=== PATIENT | female | born 1975 | race African-American/Black ===

== ENCOUNTER 2017-11-24 07:39 | Inpatient (IN) | payer MEDICAID, OTHER ==
[~2017-11-24] VITALS: Ht 157.5 cm; Wt 45.4 kg
[2017-11-24] MEDS ORDERED: SODIUM CHLORIDE 0.9% 1,000 ML IV ONE (08:24)
[2017-11-24] MEDS ORDERED: DONNATAL 5ml ORAL Elix (BELLADONNA ALK-PHENOBARB) PO ONE (08:30)
[2017-11-24] MEDS ORDERED: LIDOCAINE VISCOUS 2% 15ML UD PO ONE (08:30)
[2017-11-24] MEDS ORDERED: ALUM & MAG HYDROX-SIMETH LIQ(MAALOX) 30 ML PO ONE (08:30)
[2017-11-24 09:33] LABS: Hematocrit 34.1 % (36.0-46.0); Hemoglobin 11.4 g/dL (12.2-16.2); Mean Corpuscular Hemoglobin 32.7 pg (28.0-32.0); Mean Corpuscular Hgb Conc. 33.3 g/dL (32.0-36.0); Mean Corpuscular Volume 98.2 fL (80.0-100.0); Platelet Count (auto) 151 10^3/uL (140-450); Red Blood Cells 3.48 10^6/uL (4.0-5.20); Red Cell Distribution Width 16.7 % (11.8-14.3); White Blood Cell 4.4 10^3/uL (4.4-10.8)
[2017-11-24 09:41] LABS: Band Neutrophils % (manual) 0; Basophils % (manual) 0 (0.0-2.0); Blast Cells 0; Eosinophils % (manual) 0 (0-7); Metamyelocytes % 0; Myelocytes % 0; Promyelocytes % 0; Reactive Lymphocytes 0
[2017-11-24 09:59] LABS: Albumin 2.9 g/dL (3.4-5.0); BUN/Creatinine Ratio 10.8; Calcium 7.3 mg/dL (8.5-10.1); Magnesium 1.6 mg/dL (1.6-2.6); Potassium 3.7 mmol/L (3.5-5.1); Salicylate 7.9 mg/dL (2.8-20.0)
[2017-11-24 10:01] LABS: Bilirubin, Total 0.4 mg/dL (0.2-1.0); Total Protein 6.8 g/dL (6.4-8.2)
[2017-11-24 10:18] LABS: Urine Bacteria NONE SEEN /hpf (None Seen); Urine Blood Negative /uL (Negative); Urine Specific Gravity 1.023 (1.001-1.035); Urine WBC 3 /hpf (0 - 5)
[2017-11-24] MEDS ORDERED: D5W 5% IV ONE ×2 (10:30→11:30)
[2017-11-24] MEDS ORDERED: ACETYLCYSTEINE IV ONE ×2 (10:30→11:30)
[2017-11-24 10:33] LABS: Amphetamine Screen, Urine NEGATIVE (NEGATIVE); Barbiturate Scree,Urine NEGATIVE (NEGATIVE); Benzodiazephine Screen, Urine NEGATIVE (NEGATIVE); Cannabinoid Screen, Urine POSITIVE (NEGATIVE); Cocaine Screen, Urine NEGATIVE (NEGATIVE); Opiate Scree,Urine NEGATIVE (NEGATIVE); Phencyclidine Screen, Urine NEGATIVE (NEGATIVE)
[2017-11-24] MEDS ORDERED: NICOTINE 21MG/24 HR TOPICAL PATCH TD SCH (10:37)
[2017-11-24 11:39] LABS: Lymphocytes % (manual) 49 (10.0-50.0); Monocytes % (manual) 15 (0-12)
[2017-11-24] MEDS ORDERED: PROMETHAZINE HCL 25 MG/ML 1ML IV ONE (15:15)
[2017-11-24] MEDS: ACETYLCYSTEINE 200MG/ML IV SOL 4,500 MG in D5W 5% 1,000 ML IV SCH (16:13)
[2017-11-24 22:35] LABS: Acetaminophen < 2.0 ug/mL (10-30); Salicylate 4.6 mg/dL (2.8-20.0)
[2017-11-24 22:38] LABS: Albumin 2.8 g/dL (3.4-5.0); BUN/Creatinine Ratio 11.3; Bilirubin, Total 1.2 mg/dL (0.2-1.0); Calcium 8.1 mg/dL (8.5-10.1); Potassium 3.5 mmol/L (3.5-5.1); Total Protein 6.8 g/dL (6.4-8.2)
[2017-11-24] MEDS ORDERED: chlordiazePOXIDE HCL 25 MG CAP PO PRN (22:45)
[2017-11-24] MEDS ORDERED: ONDANSETRON HCL 4 MG/2 ML VIAL IV PRN (22:45)
[2017-11-25 07:22] LABS: Basophils # (auto) 0 uL; Basophils % (auto) 0.8 % (0.0-2.0); Eosinophils # (auto) 0 uL; Eosinophils % (auto) 1.2 % (0.0-7.0); Hematocrit 35.9 % (36.0-46.0); Hemoglobin 12.2 g/dL (12.2-16.2); Lymphocytes # (auto) 0.9 uL; Lymphocytes % (auto) 24.1 % (10.0-50.0); Mean Corpuscular Hemoglobin 33.2 pg (28.0-32.0); Mean Corpuscular Hgb Conc. 34.1 g/dL (32.0-36.0); Mean Corpuscular Volume 97.3 fL (80.0-100.0); Monocytes # (auto) 0.5 uL; Monocytes % (auto) 12.7 % (0.0-12.0); Neutrophils # (auto) 2.4 uL; Neutrophils % (auto) 61.2 % (37.0-80.0); Nucleated Red Blood Cells % 0.2 %; Platelet Count (auto) 138 10^3/uL (140-450); Red Blood Cells 3.68 10^6/uL (4.0-5.20); Red Cell Distribution Width 16.6 % (11.8-14.3); White Blood Cell 3.9 10^3/uL (4.4-10.8)
[2017-11-25 07:26] LABS: Albumin 2.6 g/dL (3.4-5.0); BUN/Creatinine Ratio 7.7; Calcium 7.9 mg/dL (8.5-10.1); Potassium 3.1 mmol/L (3.5-5.1)
[2017-11-25 07:29] LABS: Bilirubin, Total 1.6 mg/dL (0.2-1.0); Total Protein 6.5 g/dL (6.4-8.2)
[2017-11-25] MEDS: ACETYLCYSTEINE 200MG/ML IV SOL 4,500 MG in D5W 5% 1,000 ML IV SCH (07:30)
[2017-11-25] MEDS: NICOTINE 14 MG/24HR TOPICAL PATCH TD SCH (07:46)
[2017-11-25] MEDS: THIAMINE HCL 100 MG TAB PO SCH (10:26)
[2017-11-25] MEDS: PANTOPRAZOLE 40 MG TAB PO SCH (10:26)
[2017-11-25] MEDS: FOLIC ACID 1 MG TAB PO SCH (10:27)
[2017-11-25 10:53] LABS: Albumin 2.7 g/dL (3.4-5.0); BUN/Creatinine Ratio 1.5; Bilirubin, Total 1.4 mg/dL (0.2-1.0); Calcium 8.4 mg/dL (8.5-10.1); Potassium 3.4 mmol/L (3.5-5.1); Total Protein 6.8 g/dL (6.4-8.2)
[2017-11-25 17:15] VITALS: BP 130/87
[2017-11-25 17:50] VITALS: BP 130/87
[2017-11-25 19:16] LABS: Albumin 2.9 g/dL (3.4-5.0); BUN/Creatinine Ratio 5.4
[2017-11-25 19:19] LABS: Bilirubin, Total 0.7 mg/dL (0.2-1.0)
[2017-11-25 19:29] LABS: Potassium 2.9 mmol/L (3.5-5.1)
[2017-11-25] MEDS ORDERED: POTASSIUM CHL 20 Meq TABLET PO ONE (21:30)
[2017-11-26] MEDS: ACETYLCYSTEINE 200MG/ML IV SOL 4,500 MG in D5W 5% 1,000 ML IV SCH ×2 (00:07→15:30)
[2017-11-26 05:00] VITALS: BP 129/81
[2017-11-26] MEDS: NICOTINE 14 MG/24HR TOPICAL PATCH TD SCH (06:44)
[2017-11-26 07:08] LABS: Basophils # (auto) 0 uL; Basophils % (auto) 0.9 % (0.0-2.0); Eosinophils # (auto) 0.1 uL; Eosinophils % (auto) 1.7 % (0.0-7.0); Hemoglobin 11.4 g/dL (12.2-16.2); Lymphocytes # (auto) 1.5 uL; Lymphocytes % (auto) 34.8 % (10.0-50.0); Mean Corpuscular Hemoglobin 32.9 pg (28.0-32.0); Mean Corpuscular Hgb Conc. 33.5 g/dL (32.0-36.0); Mean Corpuscular Volume 98.1 fL (80.0-100.0); Monocytes # (auto) 0.7 uL; Neutrophils % (auto) 46.6 % (37.0-80.0); Nucleated Red Blood Cells % 0.2 %; Platelet Count (auto) 134 10^3/uL (140-450); Red Blood Cells 3.46 10^6/uL (4.0-5.20); Red Cell Distribution Width 16.7 % (11.8-14.3); White Blood Cell 4.3 10^3/uL (4.4-10.8)
[2017-11-26 07:24] LABS: INR 1.07 (0.9-1.15); Prothrombin Time 11.4 sec (9.27-12.13)
[2017-11-26 07:40] LABS: Albumin 2.5 g/dL (3.4-5.0); BUN/Creatinine Ratio 9.1; Bilirubin, Total 0.9 mg/dL (0.2-1.0); Calcium 7.9 mg/dL (8.5-10.1); Potassium 3.3 mmol/L (3.5-5.1); Total Protein 6.3 g/dL (6.4-8.2)
[2017-11-26] MEDS ORDERED: POTASSIUM CHL 20 Meq TABLET PO ONE (10:30)
[2017-11-26] MEDS: FOLIC ACID 1 MG TAB PO SCH (11:00)
[2017-11-26] MEDS: THIAMINE HCL 100 MG TAB PO SCH (11:00)
[2017-11-26] MEDS: PANTOPRAZOLE 40 MG TAB PO SCH (11:00)
[2017-11-26 14:04] VITALS: BP 139/106
[2017-11-26 14:09] LABS: Basophils # (auto) 0 uL; Basophils % (auto) 0.9 % (0.0-2.0); Eosinophils # (auto) 0.1 uL; Eosinophils % (auto) 1.2 % (0.0-7.0); Hematocrit 35.9 % (36.0-46.0); Lymphocytes # (auto) 1.6 uL; Lymphocytes % (auto) 30.6 % (10.0-50.0); Mean Corpuscular Hgb Conc. 33.4 g/dL (32.0-36.0); Mean Corpuscular Volume 99.1 fL (80.0-100.0); Monocytes # (auto) 0.6 uL; Monocytes % (auto) 11.5 % (0.0-12.0); Neutrophils # (auto) 2.9 uL; Neutrophils % (auto) 55.8 % (37.0-80.0); Nucleated Red Blood Cells % 0.1 %; Platelet Count (auto) 135 10^3/uL (140-450); Red Blood Cells 3.62 10^6/uL (4.0-5.20); Red Cell Distribution Width 16.9 % (11.8-14.3); White Blood Cell 5.1 10^3/uL (4.4-10.8)
[2017-11-26 14:23] LABS: INR 1.04 (0.9-1.15); Prothrombin Time 11.1 sec (9.27-12.13)
[2017-11-26 14:32] LABS: Albumin 2.9 g/dL (3.4-5.0); BUN/Creatinine Ratio 8.6; Bilirubin, Total 0.5 mg/dL (0.2-1.0); Calcium 8.3 mg/dL (8.5-10.1); Potassium 3.5 mmol/L (3.5-5.1); Total Protein 7.2 g/dL (6.4-8.2)
== END 2017-11-26 16:05 | disposition home or self-care (01) | DRG 812 ==
LOC: ER 07:43 → TELE 07:44 → TELE-CENTR 11-25 17:20
PROVIDERS: ADMIT Nurse Practitioner Family; ATTEND Internal Medicine
DX: T39.1X1A Poisoning by 4-Aminophenol derivatives, accidental (unintentional), initial encounter (principal); R45.851 Suicidal ideations; E44.0 Moderate protein-calorie malnutrition; E83.51 Hypocalcemia; K70.9 Alcoholic liver disease, unspecified; D64.9 Anemia, unspecified; F32.9 Major depressive disorder, single episode, unspecified; E87.6 Hypokalemia; F10.20 Alcohol dependence, uncomplicated; F12.90 Cannabis use, unspecified, uncomplicated; F17.210 Nicotine dependence, cigarettes, uncomplicated; Z88.5 Allergy status to narcotic agent; Z68.1 Body mass index [BMI] 19.9 or less, adult; Y92.89 Other specified places as the place of occurrence of the external cause
CPT/HCPCS: 36415; 80053; 80307; 80320; 80329; 81001; 81025; 83735; 85007; 85025; 85027; 85610; 93005; 94761; 96360; J7060

== ENCOUNTER 2018-12-01 10:29 | Inpatient (IN) | payer MEDICAID, OTHER ==
[~2018-12-01] VITALS: Ht 149.9 cm; Wt 37.9 kg
[2018-12-01 11:59] LABS: Basophils # (auto) 0 uL; Eosinophils # (auto) 0 uL; Eosinophils % (auto) 0.6 % (0.0-7.0); Hemoglobin 13.3 g/dL (12.2-16.2); Lymphocytes # (auto) 2.3 uL; Monocytes # (auto) 1.1 uL
[2018-12-01 12:01] LABS: Basophils % (auto) 0.5 % (0.0-2.0); Hematocrit 38.6 % (36.0-46.0); Lymphocytes % (auto) 29.7 % (10.0-50.0); Mean Corpuscular Hemoglobin 34.9 pg (28.0-32.0); Mean Corpuscular Hgb Conc. 34.4 g/dL (32.0-36.0); Mean Corpuscular Volume 101.4 fL (80.0-100.0); Neutrophils # (auto) 4.1 uL; Neutrophils % (auto) 54.2 % (37.0-80.0); Nucleated Red Blood Cells % 0.1 %; Platelet Count (auto) 88 10^3/uL (140-450); Red Blood Cells 3.81 10^6/uL (4.0-5.20); Red Cell Distribution Width 14.1 % (11.8-14.3); White Blood Cell 7.6 10^3/uL (4.4-10.8)
[2018-12-01 12:03] LABS: Urine Blood Negative /uL (Negative); Urine Mucus FEW (None Seen); Urine Pregnacy Test Negative (Negative); Urine Specific Gravity 1.019 (1.001-1.035); Urine Sperm PRESENT /hpf (None Seen); Urine WBC 17 /hpf (0 - 5)
[2018-12-01 12:05] LABS: Urine Bacteria FEW /hpf (None Seen)
[2018-12-01 12:12] LABS: Albumin 3.1 g/dL (3.4-5.0); Calcium 8.2 mg/dL (8.5-10.1); Potassium 3.5 mmol/L (3.5-5.1)
[2018-12-01 12:15] LABS: BUN/Creatinine Ratio 6.7; Bilirubin, Total 2.3 mg/dL (0.2-1.0); Total Protein 8.2 g/dL (6.4-8.2)
[2018-12-01 12:37] LABS: Amphetamine Screen, Urine NEGATIVE (NEGATIVE); Barbiturate Scree,Urine NEGATIVE (NEGATIVE); Benzodiazephine Screen, Urine NEGATIVE (NEGATIVE); Cannabinoid Screen, Urine POSITIVE (NEGATIVE); Cocaine Screen, Urine NEGATIVE (NEGATIVE); Opiate Scree,Urine NEGATIVE (NEGATIVE); Phencyclidine Screen, Urine NEGATIVE (NEGATIVE)
[2018-12-01] MEDS ORDERED: PANTOPRAZOLE 40 MG/10 ML VIAL INJ IV ONE (13:30)
[2018-12-01] MEDS ORDERED: cefTRIAXone 1GM/50ML D5W 50 ML IV ONE (14:15)
[2018-12-01] MEDS ORDERED: THIAMINE 100mg/ml INJ (200mg/2ml VIAL) IV ONE (14:30)
[2018-12-01] MEDS ORDERED: FAMOTIDINE (10MG/ML) 2ML VL IV ONE (15:00)
[2018-12-01] MEDS ORDERED: NITROGLYCERIN 0.4 MG SL TAB SL PRN (15:00)
[2018-12-01] MEDS ORDERED: ONDANSETRON HCL 4 MG/2 ML VIAL IV PRN (15:00)
[2018-12-01] MEDS ORDERED: MORPHINE SULF INJ 2 MG/ML SYRINGE 1ML IV PRN ×2 (15:00)
[2018-12-01] MEDS: LORazepam 2MG/ML-1ML VIAL IV PRN (16:45)
[2018-12-01] MEDS: FOLIC ACID 1 MG, MULTIPLE VITAMIN 10 ML, MAGNESIUM SULF SDV 50% 8 MEQ, THIAMINE INJ 100... INJ SCH ×5 (17:15)
--- NOTE | 2018-12-01 20:25 | NUR ---
TELE ADMIT FROM ER RECEIVED PATIENT VIA GURNEY FROM ER. PATIENT A/O X4, GENERALIZED WEAKNESS, AMBULATORY WITH MODERATE ASSISTANCE. AT BEDSIDE. UPDATED AND PATIENT ON POC, VERBALIZED UNDERSTANDING. BED LOCKED IN LOW POSITION, CALL LIGHT WITHIN REACH, WILL CONTINUE TO MONITOR PATIENT Q1HR AND PRN.
--- NOTE | 2018-12-01 20:45 | NUR ---
TAMMY MCCRAY states they want to leave the floor Against Medical Advice (AMA) to go outside and smoke. Patient encouraged to stay on floor and not smoke. Patient advised of the risks of leaving AMA, patient verbalized understanding and signed required AMA form. Patient accompanied by .
[2018-12-01] MEDS: PROPRANOLOL HCL 20 MG TAB PO SCH (21:58)
[2018-12-01 22:25] VITALS: BP 108/70
[2018-12-02 06:11] LABS: Eosinophils # (auto) 0.1 uL; Hemoglobin 11.9 g/dL (12.2-16.2); Monocytes # (auto) 0.6 uL; White Blood Cell 5.6 10^3/uL (4.4-10.8)
[2018-12-02 06:14] LABS: Basophils # (auto) 0.2 uL; Basophils % (auto) 2.9 % (0.0-2.0); Eosinophils % (auto) 1.2 % (0.0-7.0); Hematocrit 34.8 % (36.0-46.0); Lymphocytes # (auto) 1.8 uL; Lymphocytes % (auto) 31.8 % (10.0-50.0); Mean Corpuscular Hemoglobin 34.7 pg (28.0-32.0); Mean Corpuscular Hgb Conc. 34.2 g/dL (32.0-36.0); Mean Corpuscular Volume 101.4 fL (80.0-100.0); Monocytes % (auto) 10.7 % (0.0-12.0); Neutrophils % (auto) 53.4 % (37.0-80.0); Nucleated Red Blood Cells % 0.4 %; Platelet Count (auto) 74 10^3/uL (140-450); Red Blood Cells 3.43 10^6/uL (4.0-5.20); Red Cell Distribution Width 14.1 % (11.8-14.3)
[2018-12-02 06:38] LABS: INR 1.2 (0.9-1.15); Partial Thromboplastin Time 29.4 sec (23.64-32.05)
[2018-12-02 06:46] LABS: Albumin 2.3 g/dL (3.4-5.0); BUN/Creatinine Ratio 4.4; Calcium 7.2 mg/dL (8.5-10.1); Potassium 3.2 mmol/L (3.5-5.1)
[2018-12-02 06:49] LABS: Bilirubin, Total 1.9 mg/dL (0.2-1.0); Total Protein 6.2 g/dL (6.4-8.2)
--- NOTE | 2018-12-02 07:40 | NUR ---
OPENING SHIFT NOTE PATIENT LAYING IN BED EYES CLOSED CHEST RISE AND FALL VISUALIZED SHOWING NO S/S OF DISTRESS OR SOB. BED IN LOWEST LOCKED POSITION CALL LIGHT WITHIN REACH. BOARD UPDATED . WILL CONTINUE TO MONITOR
[2018-12-02 08:00] VITALS: BP 113/74
[2018-12-02 09:09] VITALS: BP 113/74
[2018-12-02] MEDS: LORazepam 2MG/ML-1ML VIAL IV PRN (09:16)
[2018-12-02] MEDS: PANTOPRAZOLE 40 MG TAB PO SCH (09:20)
[2018-12-02] MEDS: DULoxetine HCL 30 MG CAP PO SCH (09:20)
[2018-12-02] MEDS: PROPRANOLOL HCL 20 MG TAB PO SCH ×2 (09:20→22:45)
[2018-12-02] MEDS: cefTRIAXone 1GM/50ML D5W 50 ML IV SCH (09:21)
--- NOTE | 2018-12-02 10:43 | NUR ---
CALLED IN TELEPSYCH CONSULT. SPOKE TO NERI. AWAITING CALL BACK.
--- NOTE | 2018-12-02 11:38 | NUR ---
STOOL OCCULT COLLECTED AND SENT TO LAB
[2018-12-02] MEDS ORDERED: POTASSIUM CHL 20 Meq TABLET PO STA (12:03)
[2018-12-02 13:00] VITALS: BP 144/89
[2018-12-02] MEDS ORDERED: POTASSIUM CHL 20 Meq TABLET PO ONE (14:30)
[2018-12-02] MEDS: FOLIC ACID 1 MG, MULTIPLE VITAMIN 10 ML, MAGNESIUM SULF SDV 50% 8 MEQ, THIAMINE INJ 100... INJ SCH ×5 (15:55)
[2018-12-02 17:00] VITALS: BP 113/73
--- NOTE | 2018-12-02 18:52 | NUR ---
END OF SHIFT NOTE PATIENT ALERT AND ORIENTED X4 DENIES PAIN, SOB OR ANY DISTRESS. BED IN LOWEST LOCKED POSITION CALL LIGHT WITHIN REACH. ENDORSE CARE TO NOC RN
--- NOTE | 2018-12-02 19:40 | NUR ---
OPENING SHIFT NOTE RECEIVED REPORT FROM DAYSHIFT RN. PATIENT LYING IN BED WITH EYES CLOSED AND AT BEDSIDE. NO S/S OF DISTRESS OR SOB. NO PAIN NOTED OR REPORTED AT THIS TIME. PATIENT A/O X4, AMBULATORY WITH MINIMAL ASSIST. UPDATED PATIENT ON POC, VERBALIZED UNDERSTANDING. BED LOCKED IN LOW POSITION, CALL LIGHT WITHIN REACH. WILL CONTINUE TO MONITOR PATIENT Q1HR AND PRN.
[2018-12-02 22:11] VITALS: BP 120/70
[2018-12-03 05:42] VITALS: BP 114/73
[2018-12-03 06:22] LABS: Basophils # (auto) 0.1 uL; Basophils % (auto) 1.4 % (0.0-2.0); Eosinophils # (auto) 0.1 uL; Hemoglobin 12.9 g/dL (12.2-16.2); Monocytes # (auto) 0.7 uL; Neutrophils # (auto) 2.8 uL
[2018-12-03 06:26] LABS: Eosinophils % (auto) 1.9 % (0.0-7.0); Lymphocytes # (auto) 1.9 uL; Lymphocytes % (auto) 33.7 % (10.0-50.0); Mean Corpuscular Hemoglobin 34.5 pg (28.0-32.0); Mean Corpuscular Hgb Conc. 33.9 g/dL (32.0-36.0); Monocytes % (auto) 13.4 % (0.0-12.0); Neutrophils % (auto) 49.6 % (37.0-80.0); Nucleated Red Blood Cells % 0.7 %; Platelet Count (auto) 78 10^3/uL (140-450); Red Blood Cells 3.73 10^6/uL (4.0-5.20); Red Cell Distribution Width 13.6 % (11.8-14.3); White Blood Cell 5.6 10^3/uL (4.4-10.8)
[2018-12-03 06:58] LABS: Albumin 2.3 g/dL (3.4-5.0); Calcium 7.1 mg/dL (8.5-10.1); Potassium 3.7 mmol/L (3.5-5.1)
[2018-12-03 07:01] LABS: BUN/Creatinine Ratio 6.7; Bilirubin, Total 2.1 mg/dL (0.2-1.0); Total Protein 6.5 g/dL (6.4-8.2)
--- NOTE | 2018-12-03 07:24 | NUR ---
Opening Shift Note Assumed care of patient, awake and alert. No S/S of distress/SOB or pain. Instructed on POC and to call for assist PRN, will continue to monitor for changes Q1hr and PRN.
--- NOTE | 2018-12-03 08:07 | NUR ---
Dr. hector mcknight. Addendum: 12/03/18 at 0900 by MOISES MATTHEW RN Dr. Jennifer mcknight
[2018-12-03] MEDS ORDERED: GADOPENTETATE DIMEGLUMINE (10MMOL/20 ML) VIAL IV ONE ×2 (08:22→08:24)
[2018-12-03 09:00] VITALS: BP 113/73
[2018-12-03] MEDS: cefTRIAXone 1GM/50ML D5W 50 ML IV SCH (09:41)
[2018-12-03] MEDS: PROPRANOLOL HCL 20 MG TAB PO SCH ×2 (10:00→21:33)
[2018-12-03] MEDS: DULoxetine HCL 30 MG CAP PO SCH (10:00)
[2018-12-03] MEDS: PANTOPRAZOLE 40 MG TAB PO SCH (10:00)
--- NOTE | 2018-12-03 10:59 | NUR ---
Spoke with Radha Martinez BI SPECIALIST. BI SPECIALIST recommends to have patient complete echocardiogram before procedure. Spoke to preop AUGUSTA Smith. RN aware. Spoke with echocardiogram community development technician and patient will receive echocardiogram as soon as possible.
--- NOTE | 2018-12-03 11:34 | NUR ---
Received call from [facility]. Patient had 7 beats of ventricular tachycardia. Patient complains of sharp chest pain that "hurts more when you touch it." Spoke with Radha Martinez PLAYER DEVELOPMENT EXECUTIVE. EKG obtained and shown to Michelle WELCH. Per PLAYER DEVELOPMENT EXECUTIVE, patient should receive stress test before cleared for EGD. Potassium replacement and STAT magnesium ordered. Received orders to call PLAYER DEVELOPMENT EXECUTIVE if Magnesium is < 2. Spoke to preop AUGUSTA Chow. Preop aware. Dr. Rodriguez paged.
[2018-12-03] MEDS ORDERED: POTASSIUM CHL 20 Meq TABLET PO ONE ×2 (12:00→12:30)
[2018-12-03] MEDS ORDERED: MAGNESIUM OXIDE 400 MG TAB PO ONE (12:30)
[2018-12-03 12:34] VITALS: BP 112/61
[2018-12-03] MEDS: chlordiazePOXIDE HCL 25 MG CAP PO PRN ×2 (13:14→22:47)
[2018-12-03] MEDS: FOLIC ACID 1 MG, MULTIPLE VITAMIN 10 ML, MAGNESIUM SULF SDV 50% 8 MEQ, THIAMINE INJ 100... INJ SCH ×5 (15:46)
--- NOTE | 2018-12-03 16:18 | NUR ---
I spoke with Dr. Sam earlier today to let her know that we are not a [employer] contracted facility and that if patient is going to stay more than a day or two she needs to be transferred to [facility] (a [employer] contracted facility).
[2018-12-03 17:00] VITALS: BP 108/74
--- NOTE | 2018-12-03 19:10 | NUR ---
Dr. De La Torre returned paged. No additional Magnesium replacement necessary.
--- NOTE | 2018-12-03 19:19 | NUR ---
Change of shift given to security shift supervisor RN. No distress noted.
[2018-12-03 21:53] VITALS: BP 113/69
[2018-12-04 05:34] VITALS: BP 89/60
[2018-12-04 06:24] LABS: Potassium 3.8 mmol/L (3.5-5.1)
[2018-12-04 06:28] LABS: BUN/Creatinine Ratio 11.1; Calcium 7.2 mg/dL (8.5-10.1)
--- NOTE | 2018-12-04 08:00 | NUR ---
Opening Shift Note: Assumed care of patient, awake and alert. Laying in bed. No S/S of distress/SOB or pain. Bed in lowest locked position, side rails up x 2, call light within reach. Instructed on POC and to call for assist PRN, will continue to monitor for changes Q1hr and PRN.
--- NOTE | 2018-12-04 08:02 | NUR ---
Dr. Flaco mcknight. Awaiting call back.
--- NOTE | 2018-12-04 08:59 | NUR ---
Dr. Sam pagejanie.
[2018-12-04 09:00] VITALS: BP 103/56
[2018-12-04] MEDS ORDERED: ADENOSINE 32 MG in GIVE UN-DILUTED 0 ML IV ONE (09:00)
--- NOTE | 2018-12-04 09:03 | NUR ---
SPOKE WITH DOCTOR TONI. MD AWARE PT HAS A BP OF 89/59. PT IS ASYMPTOMATIC, AND DENIES S/S OF DISTRESS, CP, SOB. ORDERED 500 ML BOLUS
[2018-12-04] MEDS ORDERED: SODIUM CHLORIDE 0.9% 500 ML IV ONE (09:15)
[2018-12-04] MEDS: PROPRANOLOL HCL 20 MG TAB PO SCH (10:00)
[2018-12-04] MEDS: DULoxetine HCL 30 MG CAP PO SCH (10:46)
[2018-12-04] MEDS: PANTOPRAZOLE 40 MG TAB PO SCH (10:46)
[2018-12-04] MEDS: cefTRIAXone 1GM/50ML D5W 50 ML IV SCH (10:46)
[2018-12-04] MEDS ORDERED: POTASSIUM CHL 20 Meq TABLET PO ONE (11:15)
[2018-12-04 13:00] VITALS: BP 94/46
[2018-12-04] MEDS: FOLIC ACID 1 MG, MULTIPLE VITAMIN 10 ML, MAGNESIUM SULF SDV 50% 8 MEQ, THIAMINE INJ 100... INJ SCH ×5 (14:02)
--- NOTE | 2018-12-04 15:00 | NUR ---
Nutrition Assessment Notes please see attached link for complete assessment Est. Needs IBW [id number] kcal (25-30 kcal/kgBW), 44-52 gms pro (1.0-1.2 gms/kgBW). Will continue to monitor pertinent labs and reassess nutrient need prn Addendum: 12/04/18 at [address] Amended: Links added.
[2018-12-04 17:00] VITALS: BP 94/47
[2018-12-04 18:50] VITALS: BP 142/52
--- NOTE | 2018-12-04 19:25 | NUR ---
HOSPITALIST PAGED: PAGED HOSPITALIST REGARDING PATIENT WANTING TO LEAVE AMA. WAS NOTIFIED BY DIE REPAIRER FORGING THAT THE PATIENT STATED THAT THEY WANT TO LEAVE AMA AND THAT THEY ARE READY TO GO AND WANT THE PAPER TO SIGN RIGHT NOW. PAGED HOSPITALIST TO NOTIFY THEM THAT THE PATIENT NO LONGER WANTS TO STAY IN THE HOSPITAL. TO SEE PATIENT.
--- NOTE | 2018-12-04 19:26 | NUR ---
HOSPITALIST CALLED BACK REGARDING PATIENT WANTING TO LEAVE: HOSPITALIST MIRACLE CALLED BACK AND UPDATED ABOUT PATIENT AND PATIENTS WANT TO LEAVE AND SIGN AMA. HOSPITALIST STATE THAT THEY WILL COME UP SOON THEY CAN TO TALK TO THE PATIENT.
--- NOTE | 2018-12-04 19:27 | NUR ---
Change of shift given to lieutenant shift supervisor RN. No distress noted.
--- NOTE | 2018-12-04 19:30 | NUR ---
AMA Note TAMMY MCCRAY states they want to leave the hospital Against Medical Advice (AMA). Patient encouraged to stay for further treatment/stabilization. Hospitalist Dasha notified of patient's wishes. Patient advised of the risks and benefits of leaving AMA. Patient verbalized understanding. Patient encouraged to return to the ER if symptoms do not improve or worsen. Removed patients IV from right forearm 20 Gauge, placed gauze and secured with coband. Patient tolerated well. Removed tele box 31 and leads and sent back to surveillance system monitor technicians.
[2018-12-05 10:01] LABS: Hepatitis B Surface Antibody Negative
[2018-12-05 11:40] LABS: Hepatitis A Ab IgM Negative
[2018-12-05 11:41] LABS: Hepatitis B Core IgM Negative; Hepatitis B Core Total AB Negative; Hepatitis B Surface Antigen Negative (Negative)
== END 2018-12-04 19:38 | disposition left against medical advice (07) | DRG 378 ==
LOC: ER 10:29 → TELE 10:30 → TELE-WESTW 20:21
PROVIDERS: ADMIT Nurse Practitioner Acute Care; ATTEND Internal Medicine Nephrology
DX: K92.0 Hematemesis (principal); N39.0 Urinary tract infection, site not specified; E44.0 Moderate protein-calorie malnutrition; Z68.1 Body mass index [BMI] 19.9 or less, adult; I47.2 Ventricular tachycardia; K76.6 Portal hypertension; K86.1 Other chronic pancreatitis; R45.851 Suicidal ideations; D69.6 Thrombocytopenia, unspecified; D70.9 Neutropenia, unspecified; Z88.6 Allergy status to analgesic agent; E86.0 Dehydration; E87.6 Hypokalemia; F12.90 Cannabis use, unspecified, uncomplicated; F17.210 Nicotine dependence, cigarettes, uncomplicated; F32.9 Major depressive disorder, single episode, unspecified; I34.0 Nonrheumatic mitral (valve) insufficiency; K70.30 Alcoholic cirrhosis of liver without ascites; K83.8 Other specified diseases of biliary tract; R62.7 Adult failure to thrive; Z86.73 Personal history of transient ischemic attack (TIA), and cerebral infarction without residual deficits; I95.9 Hypotension, unspecified; K76.89 Other specified diseases of liver; Z53.21 Procedure and treatment not carried out due to patient leaving prior to being seen by health care provider
CPT/HCPCS: 36415; 70450; 71045; 74176; 74181; 76700; 78452; 80048; 80053; 80307; 81001; 81025; 82105; 82270; 83690; 83735; 83880; 84484; 84702; 85025; 85610; 85730; 86703; 86704; 86705; 86706; 86709; 86803; 86850; 86900; 86901; 87040; 87086; 87340; 93005; 93017; 93306; G0378; J0153; J0696; J2405; J3490

== ENCOUNTER 2019-07-15 21:00 | Inpatient (IN) | payer OTHER ==
[~2019-07-15] VITALS: Ht 160 cm; Wt 45.5 kg
[2019-07-16] VITALS (22 sets, daily range): BP systolic 83–100; BP diastolic 33–61
[2019-07-16] MEDS ORDERED: SODIUM CHLORIDE 0.9% 1,000 ML IV ONE ×2 (00:33→11:00)
[2019-07-16 01:19] LABS: Basophils # (auto) 0.1 10 ^3/uL (0-0.2); Basophils % (auto) 1.1 % (0.0-2.0); Eosinophils # (auto) 0 10 ^3/uL (0-0.8); Eosinophils % (auto) 0.1 % (0.0-7.0); Hematocrit 29.8 % (36.0-46.0); Lymphocytes # (auto) 1.7 10 ^3/uL (0.4-5.4); Lymphocytes % (auto) 12.9 % (10.0-50.0); Mean Corpuscular Hemoglobin 34.4 pg (28.0-32.0); Mean Corpuscular Hgb Conc. 33.5 g/dL (32.0-36.0); Mean Corpuscular Volume 102.7 fL (80.0-100.0); Monocytes # (auto) 1.1 10 ^3/uL (0-1.3); Monocytes % (auto) 8.7 % (0.0-12.0); Neutrophils # (auto) 10.2 10 ^3/uL (1.6-8.6); Neutrophils % (auto) 77.2 % (37.0-80.0); Nucleated Red Blood Cells % 0.2 %; Platelet Count (auto) 96 10^3/uL (140-450); Red Blood Cells 2.91 10^6/uL (4.0-5.20); Red Cell Distribution Width 15.5 % (11.8-14.3); White Blood Cell 13.2 10^3/uL (4.4-10.8)
[2019-07-16 01:27] LABS: INR 1.63 (0.9-1.15); Partial Thromboplastin Time 30.2 sec (23.64-32.05)
[2019-07-16 01:31] LABS: Alanine Aminotransferase 47 U/L (13-56); Albumin 2.2 g/dL (3.4-5.0); Amylase 130 U/L (25-115); Anion Gap 5 (5-15); Aspartate Aminotransferase 95 U/L (15-37); BUN/Creatinine Ratio 28.8; Blood Alcohol < 3.0 mg/dL (0-5); Blood Urea Nitrogen 17 mg/dL (7-18); Calcium 8.1 mg/dL (8.5-10.1); Carbon Dioxide 26 mmol/L (21-32); Chloride 108 mmol/L (98-107); GFR African American 141 mL/min; GFR Non-African American 117 mL/min; Glucose 120 mg/dL (74-106); Lipase 196 U/L (73-393); Potassium 3.6 mmol/L (3.5-5.1); Sodium 139 mmol/L (136-145)
[2019-07-16 01:36] LABS: Alkaline Phosphatase 144 U/L (45-117); Total Protein 7.2 g/dL (6.4-8.2)
[2019-07-16] MEDS ORDERED: THIAMINE INJ 100 MG in SODIUM CHLORIDE 0.9% 1,000 ML IV ONE (04:30)
[2019-07-16] MEDS ORDERED: IOHEXOL 300 MG/ML 100ML BOTTLE IJ ONE (04:41)
[2019-07-16] MEDS ORDERED: ONDANSETRON HCL 4 MG/2 ML VIAL IV ONE (04:45)
[2019-07-16] MEDS ORDERED: MORPHINE SULFATE 4 MG/ML SYR/VIAL IV ONE (04:45)
[2019-07-16] MEDS ORDERED: THIAMINE 100mg/ml INJ (200mg/2ml VIAL) ONE (05:21)
[2019-07-16] MEDS ORDERED: PROMETHAZINE HCL 25 MG/ML 1ML IV ONE ×2 (06:15→06:30)
[2019-07-16] MEDS ORDERED: LACTULOSE 20Gm/30ML SOLN PO ONE (06:15)
[2019-07-16 07:42] LABS: Lactic Acid w/Reflex 2.4 mmol/L (0.4-2.0)
[2019-07-16] MEDS ORDERED: TEMAZEPAM 15 MG CAP PO PRN (07:45)
[2019-07-16] MEDS ORDERED: chlordiazePOXIDE HCL 25 MG CAP PO PRN (07:45)
[2019-07-16] MEDS ORDERED: ONDANSETRON HCL 4 MG/2 ML VIAL IV PRN (07:45)
[2019-07-16] MEDS ORDERED: cefTRIAXone 1GM/50ML D5W 50 ML IV SCH (09:00)
[2019-07-16] MEDS ORDERED: PANTOPRAZOLE 40 MG/10 ML VIAL INJ IV SCH (10:00)
[2019-07-16] MEDS: LACTULOSE 20Gm/30ML SOLN PO SCH (11:05)
[2019-07-16] MEDS: FOLIC ACID 1 MG TAB PO SCH (11:05)
[2019-07-16] MEDS: THIAMINE HCL 100 MG TAB PO SCH (11:06)
[2019-07-16 11:35] LABS: Eosinophils # (auto) 0.1 10 ^3/uL (0-0.8); Hemoglobin 7.1 g/dL (12.2-16.2); Nucleated Red Blood Cells % 0.1 %
[2019-07-16 11:36] LABS: Basophils # (auto) 0.1 10 ^3/uL (0-0.2); Eosinophils % (auto) 0.7 % (0.0-7.0); Hematocrit 21.5 % (36.0-46.0); Lymphocytes # (auto) 3.4 10 ^3/uL (0.4-5.4); Lymphocytes % (auto) 28.4 % (10.0-50.0); Mean Corpuscular Hemoglobin 34.6 pg (28.0-32.0); Mean Corpuscular Volume 104.7 fL (80.0-100.0); Monocytes # (auto) 1.2 10 ^3/uL (0-1.3); Monocytes % (auto) 9.8 % (0.0-12.0); Neutrophils # (auto) 7.3 10 ^3/uL (1.6-8.6); Neutrophils % (auto) 60.1 % (37.0-80.0); Platelet Count (auto) 74 10^3/uL (140-450); Red Blood Cells 2.05 10^6/uL (4.0-5.20); Red Cell Distribution Width 15.9 % (11.8-14.3); White Blood Cell 12.1 10^3/uL (4.4-10.8)
[2019-07-16] MEDS ORDERED: VANCOMYCIN PER PHARMACY 0 MG IV SCH (11:45)
[2019-07-16 11:57] LABS: Albumin 1.8 g/dL (3.4-5.0); Calcium 6.5 mg/dL (8.5-10.1); Potassium 3.6 mmol/L (3.5-5.1)
[2019-07-16 12:01] LABS: BUN/Creatinine Ratio 26.7; Bilirubin, Total 1.2 mg/dL (0.2-1.0); Total Protein 5.6 g/dL (6.4-8.2)
[2019-07-16] MEDS: PIPERACILLIN-TAZOB 3.375GM 100 ML IV SCH ×2 (13:09→18:37)
[2019-07-16] MEDS: PANTOPRAZOLE 40 MG/10 ML VIAL INJ IV SCH ×2 (13:10→22:27)
[2019-07-16 13:40] LABS: Urine Bacteria FEW /hpf (None Seen); Urine Blood 1+ /uL (Negative); Urine WBC 1 /hpf (0 - 5)
[2019-07-16 13:47] LABS: Alcohol, Urine < 3.0 mg/dL (0-5); Amphetamine Screen, Urine NEGATIVE (NEGATIVE); Barbiturate Scree,Urine NEGATIVE (NEGATIVE); Benzodiazephine Screen, Urine NEGATIVE (NEGATIVE); Cannabinoid Screen, Urine POSITIVE (NEGATIVE); Cocaine Screen, Urine NEGATIVE (NEGATIVE); Opiate Scree,Urine POSITIVE (NEGATIVE); Phencyclidine Screen, Urine NEGATIVE (NEGATIVE)
[2019-07-16] MEDS ORDERED: metroNIDAZOLE 500MG/100ML 100 ML IV SCH (14:00)
[2019-07-16] MEDS: NOREPINEPHRINE 8 MG/250ML KIT 250 ML IV SCH (15:33)
[2019-07-16] MEDS ORDERED: VANCOMYCIN 500 MG in D5W 5% 100 ML IV ONE (16:00)
--- NOTE | 2019-07-16 18:01 | NUR ---
Got a report from ER.
--- NOTE | 2019-07-16 18:30 | NUR ---
Admit to [facility] from ER Ariana MCCRAYVETTE admitted to [facility] via gurney on casino beverage server, and portable 02. Patient transferred to bed, connected to unit monitoring and oxygen, and weighed by bedscale. Patient oriented to ARCHIE TUBBS, RN primary RN, unit, room, bed, and unit policies regarding patient care and visiting hours. All questions and concerns addressed, patient verbalized understanding. Skin assessment done, patient has IV 20 G at right forearm running Levophed at 2 mcg/min, SBP 85-95 mmHg, MAP 70 mmHg, EKG showing SR HR 80-90 /min, Room air O2 saturation 99-100%, BT 99.3 F. Plan of care discussed with patient, called and transferred her into her room.
--- NOTE | 2019-07-16 18:50 | NUR ---
IV insertion IV access obtained, via clean sterile technique by inserting 22 gauge catheter at left forearm after 1 attempt. IV secured properly. No trauma to site. Patient tolerated procedure well.
--- NOTE | 2019-07-16 19:00 | NUR ---
Dinner tray provided.
--- NOTE | 2019-07-16 20:00 | NUR ---
Opening Shift Note Assumed care of patient, awake and alert, sitting in bed after having dinner. Breathing even and nonlabored, on RA, No S/S of distress/SOB or pain. 20G IV at right FA infusing Levophed and Zosyn. 22G saline lock at left FA, flushed well, CDI site. Due to void. Bed in low position, call light within reach, all alarms are audible, fall and safety precaution in place. Instructed on POC and to call for assist PRN, will continue to monitor for changes Q1hr and PRN.
--- NOTE | 2019-07-16 22:46 | NUR ---
Blood transfusion started EKG and HR stable. Labile SBP, blood transfusion started, will continue to monitor and taper Levophed if needed.
[2019-07-17] VITALS (77 sets, daily range): BP systolic 74–124; BP diastolic 42–78
[2019-07-17] MEDS: PIPERACILLIN-TAZOB 3.375GM 100 ML IV SCH ×4 (00:15→17:53)
--- NOTE | 2019-07-17 01:30 | NUR ---
Blood transfusion done. VSS. Pt able to sleep on and off. No s/s of blood reaction. Continue care.
[2019-07-17] MEDS ORDERED: VANCOMYCIN 500 MG in D5W 5% 100 ML IV SCH ×2 (05:00→09:00)
--- NOTE | 2019-07-17 05:00 | NUR ---
Patient bathe/linen change/ elimination Pt asked for a bedpan for urination. Pt voided clear light sandy urine. Patient given partial bath and yue care. Skin integrity assessed for any changes, no new changes. Linens changed. Patient repositioned for comfort. Pt tolerated well. Pt able to turn and slide up in the bed by self. Continue care.
[2019-07-17 05:14] LABS: Basophils # (auto) 0.1 10 ^3/uL (0-0.2); Eosinophils # (auto) 0.2 10 ^3/uL (0-0.8); Mean Corpuscular Volume 98.4 fL (80.0-100.0); Monocytes # (auto) 0.6 10 ^3/uL (0-1.3); Neutrophils # (auto) 5.6 10 ^3/uL (1.6-8.6)
--- NOTE | 2019-07-17 05:15 | NUR ---
No Vancomycin found in the unit refrigerator. ER called, no vancomycin found. Will call pharmacy when open in am. 06.40am Called Pharmacy for Vancomycin and possible change of administration time. Will endorse to day nurse.
[2019-07-17 05:16] LABS: Basophils % (auto) 0.8 % (0.0-2.0); Eosinophils % (auto) 1.8 % (0.0-7.0); Hemoglobin 8.2 g/dL (12.2-16.2); Lymphocytes # (auto) 2.4 10 ^3/uL (0.4-5.4); Lymphocytes % (auto) 27.1 % (10.0-50.0); Mean Corpuscular Hemoglobin 33.4 pg (28.0-32.0); Monocytes % (auto) 7.1 % (0.0-12.0); Neutrophils % (auto) 63.2 % (37.0-80.0); Platelet Count (auto) 65 10^3/uL (140-450); Red Blood Cells 2.44 10^6/uL (4.0-5.20); Red Cell Distribution Width 18.4 % (11.8-14.3); White Blood Cell 8.9 10^3/uL (4.4-10.8)
--- NOTE | 2019-07-17 05:30 | NUR ---
Med Reconciliation Pt stated that she has no home medication because she has no insurance. Pt stated that her last seizure activity was about 6 months ago. Pt reported that she has never been on seizure medicine. Pt reported that her mother had seizure since she was 8 years old.
[2019-07-17 05:34] LABS: Albumin 1.6 g/dL (3.4-5.0); BUN/Creatinine Ratio 15.1; Calcium 6.5 mg/dL (8.5-10.1); Potassium 3.1 mmol/L (3.5-5.1)
[2019-07-17 05:37] LABS: Total Protein 5.1 g/dL (6.4-8.2)
--- NOTE | 2019-07-17 08:00 | NUR ---
IV removal IV DC'd with clean sterile technique, catheter fully intact. Pressure dressing applied to site. Patient tolerated well. Reason for removal: pt reported tenderness at IV site, no blood return.
--- NOTE | 2019-07-17 08:01 | NUR ---
IV insertion IV access obtained, via clean sterile technique by inserting 22 gauge catheter at right forearm after 1st attempt. IV secured properly. No trauma to site. Patient tolerated well.
[2019-07-17] MEDS: PANTOPRAZOLE 40 MG/10 ML VIAL INJ IV SCH ×2 (09:37→21:50)
[2019-07-17] MEDS: FOLIC ACID 1 MG TAB PO SCH (09:37)
[2019-07-17] MEDS: THIAMINE HCL 100 MG TAB PO SCH (09:38)
[2019-07-17] MEDS: LACTULOSE 20Gm/30ML SOLN PO SCH (09:39)
[2019-07-17] MEDS: NOREPINEPHRINE 8 MG/250ML KIT 250 ML IV SCH (11:00)
--- NOTE | 2019-07-17 11:00 | NUR ---
PAGELeyda MUÑOZ ABOUT POTASSIUM.
[2019-07-17] MEDS ORDERED: POTASSIUM EFFERVESENT TAB 25 MEQ PO ONE (13:00)
--- NOTE | 2019-07-17 14:13 | NUR ---
NUTRITION ASSESSMENT NOTES Please refer to link notes of nutrition screen form filed under the intervention section of the plan of care for further details. Est. Energy Needs: [id number] kcal (30-35 kcal/kg BW). Est. Protein Needs: 50 gms/day (1.1 gms/kg BW). Will continue to monitor pertinent labs and reassess nutrient need prn Addendum: 07/17/19 at [address] Amended: Links added.
--- NOTE | 2019-07-17 17:35 | NUR ---
Opening Shift Note Assumed care of patient, awake and alert. No S/S of distress/SOB or pain. Patient saturation 95% at room air. See interventions for complete assessment. Bed locked on low position, side rails up x2, bed alarms on at all times, call miller within reach, instructed on POC and to call for assist PRN, will continue to monitor for changes Q1hr and PRN.
[2019-07-17] MEDS ORDERED: LEVOTHYROXINE SODIUM 50 MCG TAB PO ONE (19:15)
--- NOTE | 2019-07-17 19:20 | NUR ---
Opening Shift Note Assumed care of patient, awake and alert. No S/S of distress/SOB or pain. See interventions for complete assessment. Bed locked on low position, side rails up x2, bed alarms on at all times, call miller within reach, instructed on POC and to call for assist PRN, will continue to monitor for changes Q1hr and PRN.
--- NOTE | 2019-07-17 23:00 | NUR ---
ENDORSED CARE TO RN SUSAN. PT WAS AWAKE AND ALERT. NO DISTRESS NOTED.
--- NOTE | 2019-07-18 | NUR ---
Received patient to room 219A. Alert and oriented. Vitals stable. Assisted to the bathroom. Placed a hat in the toilet. Ambulated to the restroom with stand by assist. Had a BM, but unable to send to lab due to it mixing with her urine. Will try and get a sample next time she has a BM. No complaints of pain. No respiratory distress. Oriented to room. Continuing to monitor
[2019-07-18] MEDS: PIPERACILLIN-TAZOB 3.375GM 100 ML IV SCH ×4 (00:28→17:58)
[2019-07-18 05:00] VITALS: BP 105/68
[2019-07-18 06:06] LABS: Basophils # (auto) 0.1 10 ^3/uL (0-0.2); Basophils % (auto) 0.8 % (0.0-2.0); Eosinophils # (auto) 0.2 10 ^3/uL (0-0.8); Eosinophils % (auto) 2.7 % (0.0-7.0); Hematocrit 26.1 % (36.0-46.0); Hemoglobin 8.9 g/dL (12.2-16.2); Lymphocytes # (auto) 1.9 10 ^3/uL (0.4-5.4); Lymphocytes % (auto) 26.6 % (10.0-50.0); Mean Corpuscular Hemoglobin 33.9 pg (28.0-32.0); Mean Corpuscular Hgb Conc. 34.1 g/dL (32.0-36.0); Mean Corpuscular Volume 99.3 fL (80.0-100.0); Monocytes # (auto) 0.5 10 ^3/uL (0-1.3); Monocytes % (auto) 6.8 % (0.0-12.0); Neutrophils # (auto) 4.4 10 ^3/uL (1.6-8.6); Neutrophils % (auto) 63.1 % (37.0-80.0); Nucleated Red Blood Cells % 0.2 %; Platelet Count (auto) 74 10^3/uL (140-450); Red Blood Cells 2.63 10^6/uL (4.0-5.20); Red Cell Distribution Width 18.5 % (11.8-14.3)
[2019-07-18 06:15] LABS: Calcium 6.8 mg/dL (8.5-10.1); Potassium 3.4 mmol/L (3.5-5.1)
[2019-07-18 06:18] LABS: BUN/Creatinine Ratio 9.5
[2019-07-18] MEDS ORDERED: LEVOTHYROXINE SODIUM 50 MCG TAB PO SCH (07:00)
--- NOTE | 2019-07-18 07:45 | NUR ---
Opening Shift Note Assumed care of patient, awake and alert. No S/S of distress/SOB or pain. Instructed on POC and to call for assist PRN, will continue to monitor for changes Q1hr and PRN. Bed locked in lowest position with two side rails up and call light in reach.
[2019-07-18 08:00] VITALS: BP 97/59
[2019-07-18 12:00] VITALS: BP 115/68
--- NOTE | 2019-07-18 12:05 | NUR ---
DR MCKENNA LYNN ROUNDING. NEW ORDERS RECEIVED. SIMETHICONE 2TABS TID PRN
[2019-07-18] MEDS ORDERED: SIMETHICONE 80 MG CHEWABLE TABLET PO PRN (12:15)
[2019-07-18] MEDS: PANTOPRAZOLE 40 MG/10 ML VIAL INJ IV SCH (12:35)
[2019-07-18] MEDS: LACTULOSE 20Gm/30ML SOLN PO SCH (12:35)
[2019-07-18] MEDS: THIAMINE HCL 100 MG TAB PO SCH (12:35)
[2019-07-18] MEDS: FOLIC ACID 1 MG TAB PO SCH (12:35)
--- NOTE | 2019-07-18 14:59 | NUR ---
assessment Patient is a 44 year old female who is alert and oriented. Patients cognitive abilities are intact. Prior to admission patient lived home with family and functioned with assistance. Per patient she will return home to her prior living arrangements post discharge and family will transport her home. Patient informed me she has a shower chair and cane for home use. Patient informed me her and children help her at home when she needs it. Patient informed me her and her family recently moved to the area and she has been sick since the move. Patient stated she is not depressed and is just trying to get some medical help. I informed patient we would discharge plan after her work up here and prior to discharge. Patient feels safe returning home on discharge. I informed patient she has a right to speak to a social work program coordinator regarding all care. I informed patient she has a right to participate in any and all discharge planning. Patient does not have a POA and advanced directive. I have offered patient information on POA and advanced directives. I informed the patient the advantages and benefits of having an Advanced Directive. Patient verbalized understanding and agreed to discharge plan. Addendum: 07/18/19 at 1502 by Tiff LOPEZ Amended: Links added.
[2019-07-18 17:07] VITALS: BP 95/56
--- NOTE | 2019-07-18 17:43 | NUR ---
I called [facility] and spoke with rooming house inspector Eveline-I let her know that Dr. Austin is accepting this patient. Per Eveline she will speak with him and give me a call back. [facility] and spoke with Diogenes to let her know about transfer to [facility]-she said no auth is needed for [facility] to transport. I spoke with nurse Mary to make her aware about possible transfer to [facility], I also spoke with patient and made her aware.
--- NOTE | 2019-07-18 18:32 | NUR ---
I called [facility] ([phone]) and spoke with Reginald-placed patient on will call pending bed at [facility]-I relayed this information to nurse Ruvalcaba.
--- NOTE | 2019-07-18 18:57 | NUR ---
[facility]CE[facility] A [facility]ULAIMAN PATIENT HAS A BED [address] MD [address] MARTINEZ REPORT TO GIVEN AT [phone] [place] [facility] WOULD LIKE PATIENT TO BE TRANSFERRED SOON WE HAVE A MINUTE BUT SOONER THAN LATER DR MARTINEZ WILL HAVE TO CONTACTED FOR ORDERS.
--- NOTE | 2019-07-18 19:20 | NUR ---
Opening Shift Note Received report from Peg DERAS. Assumed care of patient, awake and alert. No S/S of distress/SOB or pain. Instructed on POC and to call for assist PRN, will continue to monitor for changes Q1hr and PRN. Patient is for transfer to [facility], awaiting for transport.
--- NOTE | 2019-07-18 19:34 | NUR ---
Called to patient's Ritika to inform of patient's transfer, verbalized understanding.
--- NOTE | 2019-07-18 20:13 | NUR ---
Report given to Georgette DERAS from [facility].
--- NOTE | 2019-07-18 21:00 | NUR ---
Pt being trans to another hosp Order obtained for transfer of TAMMY MCCRAY to [facility]. Report called/given to pat RN. Report given to EMS transport team. Medication reconciliation form completed and copy given to patient. Transported via gurney along with copied chart and imaging films/disk and all personal belongings. No distress noted on time of departure. Family notified of destination and room number, verbalized understanding.
[2019-07-18 21:05] VITALS: BP 93/58
[2019-07-21 08:50] LABS: Hepatitis B Surface Antibody Negative
[2019-07-21 10:05] LABS: Hepatitis A Total Antibody Negative
[2019-07-21 10:07] LABS: Hepatitis B Core Total AB Negative; Hepatitis B Surface Antigen Negative (Negative); Hepatitis C Antibody Negative (Negative)
== END 2019-07-18 21:00 | disposition short-term general hospital (02) | DRG 377 ==
LOC: ER 21:04 → OVERFLOW 21:05 → DOU IN ICU 07-16 18:20 → TELE-CENTR 07-17 23:04 → CENTRAL 07-18 15:45
PROVIDERS: ADMIT Nurse Practitioner; ATTEND Internal Medicine Nephrology
PROC: 30233N1 Transfusion of Nonautologous Red Blood Cells into Peripheral Vein, Percutaneous Approach (ICD-10-PCS; principal; 2019-07-16)
DX: K29.21 Alcoholic gastritis with bleeding (principal); E43 Unspecified severe protein-calorie malnutrition; D62 Acute posthemorrhagic anemia; D68.9 Coagulation defect, unspecified; Z68.1 Body mass index [BMI] 19.9 or less, adult; F10.239 Alcohol dependence with withdrawal, unspecified; K86.1 Other chronic pancreatitis; D69.59 Other secondary thrombocytopenia; K72.90 Hepatic failure, unspecified without coma; E03.9 Hypothyroidism, unspecified; Y90.9 Presence of alcohol in blood, level not specified; F17.210 Nicotine dependence, cigarettes, uncomplicated; I10 Essential (primary) hypertension; K70.30 Alcoholic cirrhosis of liver without ascites; K80.20 Calculus of gallbladder without cholecystitis without obstruction; R04.0 Epistaxis; R62.7 Adult failure to thrive; Z88.5 Allergy status to narcotic agent; Z59.0 Homelessness; Z91.19 Patient's noncompliance with other medical treatment and regimen
CPT/HCPCS: 36415; 74177; 80048; 80053; 80307; 80320; 81001; 82140; 82150; 82270; 82378; 82533; 83605; 83690; 84439; 84443; 84484; 84702; 85025; 85610; 85730; 86704; 86706; 86708; 86803; 86850; 86900; 86901; 86920; 87040; 87086; 87340; C9113; G0378; J0696; J2405; J2543; J7060